=== PATIENT | male | born 1955 | race Hispanic/Latino ===

== ENCOUNTER 2021-08-10 17:25 | Inpatient (IN) | payer MEDICARE, OTHER ==
[~2021-08-10] VITALS: Ht 177.8 cm; Wt 118.9 kg
[2021-08-10 17:45] LABS: BASOPHILS % (AUTO) 0.5 % (0.0-5.0); EOSINOPHILS % (AUTO) 1.2 % (0.0-8.0); HEMATOCRIT 39.8 % (42-54); LYMPHOCYTES % (AUTO) 6.1 % (21.0-51.0); MEAN CORPUSCULAR HEMOGLOBIN 27.5 pg (27.0-33.0); MEAN CORPUSCULAR HGB CONC 34.2 g/dL (32.0-36.0); MEAN CORPUSCULAR VOLUME 80.4 fL (79-99); MONOCYTES % (AUTO) 8.3 % (3.0-13.0); NEUTROPHILS % (AUTO) 82.8 % (40.0-77.0); PLATELET COUNT (AUTO) 332 K/uL (130-400); RED BLOOD CELL COUNT(AUTO) 4.95 MIL/uL (4.50-6.20); WHITE BLOOD COUNT (AUTO) 12.1 K/uL (4.8-10.8)
[2021-08-10 18:01] LABS: CREATININE 1.3 mg/dL (0.5-1.5); POTASSIUM 3.1 mmol/L (3.5-5.1)
[2021-08-10 18:15] LABS: ALBUMIN 4.2 g/dL (3.5-5.0); BILIRUBIN,TOTAL 0.6 mg/dL (0.2-1.0); TOTAL PROTEIN, SERUM 7.5 g/dL (6.0-8.3)
[2021-08-10] MEDS ORDERED: 0.9%NACL 1000ML 1,000 ML IV ONE (18:18)
[2021-08-10] MEDS ORDERED: LEVOFLOXACIN 500 MG/D5W 100 ML 100 ML IV SCH (18:30)
[2021-08-10] MEDS ORDERED: LACTATED RINGERS 1000ML 2,190 ML IV ONE (18:30)
[2021-08-10 19:25] LABS: INR 1.12 (0.85-1.15); PROTHROMBIN TIME 12.1 SEC (9.6-11.6)
[2021-08-10 19:27] LABS: PARTIAL THROMBOPLASTIN TIME 24.8 SEC (26.3-35.5)
[2021-08-10 20:07] LABS: APPEARANCE,URINE Clear (CLEAR); BILIRUBIN,URINE Negative (NEGATIVE); COLOR,URINE Yellow (YELLOW); GLUCOSE, URINE (UA) Negative (NEGATIVE); KETONES,URINE Negative (NEGATIVE); LEUKOCYTE ESTERASE ,URINE Negative (NEGATIVE); NITRATE,URINE Negative (NEGATIVE); OCCULT BLOOD,URINE Negative (NEGATIVE); PH,URINE 5.5 (5.0-8.0); PROTEIN,URINE Negative (NEGATIVE)
[2021-08-10] MEDS ORDERED: POTASSIUM CHLORIDE 20MEQ/100ML 100 ML IV PRN (20:30)
[2021-08-10] MEDS ORDERED: LIDOCAINE HCL-MPF 1% 2ML VIAL IV PRN (20:30)
[2021-08-10] MEDS ORDERED: ONDANSETRON 4MG INJ IV PRN (21:00)
[2021-08-10] MEDS ORDERED: NITROGLYCERIN 0.4 MG SL TAB SL PRN (21:00)
[2021-08-10] MEDS: 0.9%NACL 1000ML 1,000 ML IV SCH (21:03)
[2021-08-10] MEDS: FAMOTIDINE 20MG VIAL IV SCH (21:03)
[2021-08-10 21:12] LABS: HEMOGLOBIN A1C 6.2 % (4.0-6.0)
[2021-08-10 21:43] LABS: CRP QUANTITATIVE < 2.00 mg/L (0.00-9.0)
[2021-08-10] MEDS ORDERED: ALBUTEROL INHALER 90MCG/INH IH PRN (22:00)
[2021-08-10] MEDS ORDERED: CEFTRIAXONE 1G VIAL IVP SCH (22:00)
[2021-08-10] MEDS: AZITHROMYCIN 500MG+NS 250ML IV SCH (22:18)
[2021-08-10] MEDS: 0.9% NACL 250ML IVPB SCH (22:18)
[2021-08-10] MEDS ORDERED: MAGNESIUM 2GM PREMIX 50ML 50 ML IV SCH (22:30)
[2021-08-10] MEDS ORDERED: DEXTROSE 50%-WATER 50 ML DISP.SYRIN IV PRN (22:30)
[2021-08-10] MEDS ORDERED: GLUCAGON 1MG KIT 1 MG ML IM PRN (22:30)
[2021-08-10 23:30] VITALS: BP 134/81
[2021-08-11 03:46] LABS: BASOPHILS % (AUTO) 0.2 % (0.0-5.0); EOSINOPHILS % (AUTO) 0.1 % (0.0-8.0); HEMATOCRIT 40.6 % (42-54); LYMPHOCYTES % (AUTO) 2.8 % (21.0-51.0); MEAN CORPUSCULAR HEMOGLOBIN 27.2 pg (27.0-33.0); MEAN CORPUSCULAR HGB CONC 33.3 g/dL (32.0-36.0); MEAN CORPUSCULAR VOLUME 81.7 fL (79-99); NEUTROPHILS % (AUTO) 90.4 % (40.0-77.0); PLATELET COUNT (AUTO) 327 K/uL (130-400); RED BLOOD CELL COUNT(AUTO) 4.97 MIL/uL (4.50-6.20); RED CELL DISTRIBUTION WIDTH 15.4 % (11.0-15.5); WHITE BLOOD COUNT (AUTO) 18.3 K/uL (4.8-10.8)
[2021-08-11 04:00] VITALS: BP 129/80
[2021-08-11 04:25] LABS: ALBUMIN 3.8 g/dL (3.5-5.0); BILIRUBIN,TOTAL 0.9 mg/dL (0.2-1.0); CREATININE 1.1 mg/dL (0.5-1.5); MAGNESIUM 1.8 mg/dL (1.80-2.40); POTASSIUM 3.9 mmol/L (3.5-5.1); THYROID STIMULATING HORMONE 3.32 uIU/mL (0.36-3.74); TOTAL PROTEIN, SERUM 7.2 g/dL (6.0-8.3)
[2021-08-11] MEDS: INSULIN HUMULIN R 100 UNIT/ML 3ML SQ SCH ×5 (06:00→21:00)
[2021-08-11] MEDS: 0.9%NACL 1000ML 1,000 ML IV SCH ×2 (07:00→17:51)
[2021-08-11 08:00] VITALS: BP 125/77
[2021-08-11] MEDS: ASPIRIN 81 MG EC TAB PO SCH (08:20)
[2021-08-11] MEDS: FAMOTIDINE 20MG VIAL IV SCH ×2 (08:21→21:00)
[2021-08-11] MEDS: ENOXAPARIN SODIUM 40 MG/0.4 ML SYRINGE SQ SCH (08:21)
[2021-08-11] MEDS ORDERED: ZOSYN 3.375GM +NS 50ML IV SCH (09:30)
[2021-08-11] MEDS ORDERED: ZOSYN 3.375GM+NS 50ML 50 ML IV SCH (10:00)
[2021-08-11] MEDS ORDERED: ALLO300T2 PO (10:39)
[2021-08-11] MEDS ORDERED: HYDR-4068 PO (10:39)
[2021-08-11] MEDS ORDERED: AEC81 PO (10:39)
[2021-08-11] MEDS ORDERED: BENZ-70 PO (10:39)
[2021-08-11] MEDS ORDERED: OLAN10TA73 PO (10:39)
[2021-08-11] MEDS ORDERED: LORA-192 PO (10:39)
[2021-08-11] MEDS ORDERED: METF-444 PO (10:39)
[2021-08-11] MEDS ORDERED: LEVO50 PO (10:39)
[2021-08-11] MEDS ORDERED: VIT PO (10:39)
[2021-08-11] MEDS ORDERED: FLUT16H NASAL (10:39)
[2021-08-11] MEDS ORDERED: LISI1TAB51 PO (10:39)
[2021-08-11] MEDS ORDERED: BACL20TA PO (10:39)
[2021-08-11] MEDS ORDERED: FLUO40CA7 PO (10:39)
[2021-08-11] MEDS ORDERED: OMEG-148 PO (10:39)
[2021-08-11] MEDS ORDERED: PROP10DR5 OU (10:39)
[2021-08-11] MEDS ORDERED: ATOR40TA71 PO (10:39)
[2021-08-11] MEDS ORDERED: PANT40TA54 PO (10:39)
[2021-08-11] MEDS ORDERED: TAMS-1 PO (10:39)
[2021-08-11 11:03] LABS: AMPHET/METH SCREEN,URINE NEGATIVE (NEGATIVE); BARBITURATE SCREEN, URINE NEGATIVE (NEGATIVE); BENZODIAZEPINES SCREEN,URINE NEGATIVE (NEGATIVE); CANNABINOID SCREEN,URINE NEGATIVE (NEGATIVE); COCAINE SCREEN,URINE NEGATIVE (NEGATIVE); OPIATE SCREEN,URINE NEGATIVE (NEGATIVE); PHENCYCLIDINE SCREEN,URINE NEGATIVE (NEGATIVE)
[2021-08-11 11:42] VITALS: BP 143/85
[2021-08-11] MEDS: ZOSYN 3.375GM+NS 50ML 50 ML IV SCH ×2 (13:00→21:10)
[2021-08-11 16:00] VITALS: BP 143/87
[2021-08-11 20:00] VITALS: BP 138/85
[2021-08-11] MEDS: HYDROCHLOROTHIAZIDE 25 MG TABLET PO SCH (21:08)
[2021-08-11] MEDS: OLANZAPINE 5 MG TAB PO SCH (21:08)
[2021-08-11] MEDS: ATORVASTATIN 40 MG TABLET PO SCH (21:09)
[2021-08-11] MEDS: LORAZEPAM 1 MG TABLET PO SCH (21:09)
[2021-08-11] MEDS: LISINOPRIL 20 MG TABLET PO SCH (21:21)
[2021-08-11] MEDS: 0.9% NACL 250ML IVPB SCH (22:00)
[2021-08-12] VITALS: BP 127/78
[2021-08-12] MEDS: AZITHROMYCIN 500MG+NS 250ML IV SCH ×2 (01:28→22:22)
[2021-08-12 04:00] VITALS: BP 157/85
[2021-08-12 04:41] LABS: BASOPHILS % (AUTO) 0.5 % (0.0-5.0); EOSINOPHILS % (AUTO) 2.6 % (0.0-8.0); HEMATOCRIT 37.9 % (42-54); LYMPHOCYTES % (AUTO) 8.6 % (21.0-51.0); MEAN CORPUSCULAR HEMOGLOBIN 26.7 pg (27.0-33.0); MEAN CORPUSCULAR VOLUME 80.8 fL (79-99); MONOCYTES % (AUTO) 7.7 % (3.0-13.0); NEUTROPHILS % (AUTO) 80.2 % (40.0-77.0); PLATELET COUNT (AUTO) 296 K/uL (130-400); RED BLOOD CELL COUNT(AUTO) 4.69 MIL/uL (4.50-6.20); RED CELL DISTRIBUTION WIDTH 15.7 % (11.0-15.5); WHITE BLOOD COUNT (AUTO) 9.2 K/uL (4.8-10.8)
[2021-08-12 05:02] LABS: ALBUMIN 3.5 g/dL (3.5-5.0); CREATININE 1.1 mg/dL (0.5-1.5); POTASSIUM 3.8 mmol/L (3.5-5.1)
[2021-08-12] MEDS: LEVOTHYROXINE 100 MCG TABLET PO SCH (06:30)
[2021-08-12] MEDS: LEVOTHYROXINE 75 MCG TABLET PO SCH (06:30)
[2021-08-12] MEDS ORDERED: NITROGLYCERIN 0.4 MG SL TAB SL PRN (07:30)
[2021-08-12] MEDS ORDERED: METOPROLOL TARTRATE 25 MG TAB PO SCH (07:30)
[2021-08-12] MEDS: INSULIN HUMULIN R 100 UNIT/ML 3ML SQ SCH ×4 (07:30→21:00)
[2021-08-12 08:00] VITALS: BP 157/82
[2021-08-12] MEDS ORDERED: LISINOPRIL 20 MG TABLET PO SCH (09:00)
[2021-08-12] MEDS ORDERED: HYDROCHLOROTHIAZIDE 25 MG TABLET PO SCH (09:00)
[2021-08-12] MEDS: FAMOTIDINE 20MG VIAL IV SCH (09:00)
[2021-08-12] MEDS: HYDROCHLOROTHIAZIDE 25 MG TABLET PO SCH (10:10)
[2021-08-12] MEDS: TAMSULOSIN HCL 0.4 MG CAP.ER.24H PO SCH (10:10)
[2021-08-12] MEDS: LORAZEPAM 1 MG TABLET PO SCH ×3 (10:11→22:21)
[2021-08-12] MEDS: ALLOPURINOL 300 MG TABLET PO SCH (10:11)
[2021-08-12] MEDS: FISH OIL 1000 MG/CAP PO SCH (10:11)
[2021-08-12] MEDS: PANTOPRAZOLE 40 MG TAB DR PO SCH (10:12)
[2021-08-12] MEDS: FLUOXETINE HCL 20 MG CAPSULE PO SCH (10:12)
[2021-08-12] MEDS: ASPIRIN 81 MG EC TAB PO SCH (10:12)
[2021-08-12] MEDS: ENOXAPARIN SODIUM 40 MG/0.4 ML SYRINGE SQ SCH (10:14)
[2021-08-12] MEDS: LISINOPRIL 20 MG TABLET PO SCH (10:28)
[2021-08-12] MEDS ORDERED: IOHEXOL-350 50ML VIAL IV ONE (11:16)
[2021-08-12 11:51] VITALS: BP 138/86
[2021-08-12] MEDS: 0.9%NACL 1000ML 1,000 ML IV SCH ×3 (11:51→22:57)
[2021-08-12] MEDS: ZOSYN 3.375GM+NS 50ML 50 ML IV SCH ×2 (13:08→22:21)
[2021-08-12 16:00] VITALS: BP 155/94
[2021-08-12 20:00] VITALS: BP 154/91
[2021-08-12] MEDS: ATORVASTATIN 40 MG TABLET PO SCH (22:21)
[2021-08-12] MEDS: OLANZAPINE 5 MG TAB PO SCH (22:21)
[2021-08-12] MEDS: 0.9% NACL 250ML IVPB SCH (22:22)
[2021-08-13] VITALS: BP 144/92
[2021-08-13 04:00] VITALS: BP 152/94
[2021-08-13] MEDS: ZOSYN 3.375GM+NS 50ML 50 ML IV SCH (05:42)
[2021-08-13] MEDS: LEVOTHYROXINE 100 MCG TABLET PO SCH (05:42)
[2021-08-13] MEDS: LEVOTHYROXINE 75 MCG TABLET PO SCH (05:42)
[2021-08-13] MEDS: INSULIN HUMULIN R 100 UNIT/ML 3ML SQ SCH ×2 (05:47→11:30)
[2021-08-13 06:00] LABS: HEMATOCRIT 37.5 % (42-54); MEAN CORPUSCULAR HEMOGLOBIN 27.1 pg (27.0-33.0); MEAN CORPUSCULAR HGB CONC 33.3 g/dL (32.0-36.0); MEAN CORPUSCULAR VOLUME 81.3 fL (79-99); RED BLOOD CELL COUNT(AUTO) 4.61 MIL/uL (4.50-6.20); RED CELL DISTRIBUTION WIDTH 15.6 % (11.0-15.5); WHITE BLOOD COUNT (AUTO) 8.2 K/uL (4.8-10.8)
[2021-08-13 06:25] LABS: CREATININE 1.1 mg/dL (0.5-1.5)
[2021-08-13 08:00] VITALS: BP 144/92
[2021-08-13] MEDS ORDERED: AMOX-429 PO (08:58)
[2021-08-13] MEDS: 0.9%NACL 1000ML 1,000 ML IV SCH (09:00)
[2021-08-13] MEDS: FISH OIL 1000 MG/CAP PO SCH (09:29)
[2021-08-13] MEDS: LORAZEPAM 1 MG TABLET PO SCH (09:29)
[2021-08-13] MEDS: LISINOPRIL 20 MG TABLET PO SCH (09:30)
[2021-08-13] MEDS: HYDROCHLOROTHIAZIDE 25 MG TABLET PO SCH (09:30)
[2021-08-13] MEDS: ALLOPURINOL 300 MG TABLET PO SCH (09:30)
[2021-08-13] MEDS: ASPIRIN 81 MG EC TAB PO SCH (09:30)
[2021-08-13] MEDS: PANTOPRAZOLE 40 MG TAB DR PO SCH (09:30)
[2021-08-13] MEDS: TAMSULOSIN HCL 0.4 MG CAP.ER.24H PO SCH (09:31)
[2021-08-13] MEDS: FLUOXETINE HCL 20 MG CAPSULE PO SCH (09:31)
[2021-08-13] MEDS: ENOXAPARIN SODIUM 40 MG/0.4 ML SYRINGE SQ SCH (09:35)
[2021-08-13 12:00] VITALS: BP 141/88
== END 2021-08-13 13:45 | disposition home or self-care (01) | DRG 178 ==
LOC: EDH 17:25 → EDHIP 20:30 → 3CH 22:52
PROVIDERS: ADMIT Internal Medicine; ATTEND Internal Medicine
DX: J69.0 Pneumonitis due to inhalation of food and vomit (principal); J98.11 Atelectasis; M62.82 Rhabdomyolysis; E87.1 Hypo-osmolality and hyponatremia; K52.9 Noninfective gastroenteritis and colitis, unspecified; N40.0 Benign prostatic hyperplasia without lower urinary tract symptoms; E66.9 Obesity, unspecified; Z68.38 Body mass index [BMI] 38.0-38.9, adult; E87.6 Hypokalemia; E78.5 Hyperlipidemia, unspecified; E86.1 Hypovolemia; Z20.822 Contact with and (suspected) exposure to COVID-19; G89.29 Other chronic pain; E11.9 Type 2 diabetes mellitus without complications; I10 Essential (primary) hypertension; E03.9 Hypothyroidism, unspecified; E86.0 Dehydration; F32.A Depression, unspecified; F41.9 Anxiety disorder, unspecified; E83.42 Hypomagnesemia; F43.10 Post-traumatic stress disorder, unspecified; E87.8 Other disorders of electrolyte and fluid balance, not elsewhere classified; E78.00 Pure hypercholesterolemia, unspecified; I70.0 Atherosclerosis of aorta; K57.30 Diverticulosis of large intestine without perforation or abscess without bleeding; Z79.891 Long term (current) use of opiate analgesic; Z98.1 Arthrodesis status; Z84.1 Family history of disorders of kidney and ureter; Z82.49 Family history of ischemic heart disease and other diseases of the circulatory system
CPT/HCPCS: 36415; 70450; 70470; 71045; 74176; 80048; 80053; 80061; 80305; 81003; 82270; 82550; 82948; 83036; 83605; 83630; 83690; 83735; 83874; 84145; 84443; 84484; 85025; 85027; 85610; 85651; 85730; 86140; 87040; 87046; 87177; 87507; 87635; 93005; 93306; 93356; 93970; 95819; G0378; J0456; J0696; J1650; J1956; J2543; J3475; J3480; J3490; J7030; J7050; J7120; Q9967

== ENCOUNTER 2021-12-01 03:18 | Emergency (ER) | payer MEDICARE ==
[~2021-12-01] VITALS: Ht 177.8 cm; Wt 117.9 kg
[~2021-12-01 03:18] MED LIST: AEC81 PO; ALLO300T2 PO; AMOX-429 PO; ATOR40TA71 PO; BACL20TA PO; BENZ-70 PO; FLUO40CA7 PO; FLUT16H NASAL; HYDR-4068 PO; LEVO50 PO; LISI1TAB51 PO; LORA-192 PO; METF-444 PO; OLAN10TA73 PO; OMEG-148 PO; PANT40TA54 PO; PROP10DR5 OU; TAMS-1 PO; VIT PO
[2021-12-01 03:33] LABS: BASOPHILS % (AUTO) 0.9 % (0.0-5.0); EOSINOPHILS % (AUTO) 3.2 % (0.0-8.0); HEMATOCRIT 40.2 % (42-54); LYMPHOCYTES % (AUTO) 14.6 % (21.0-51.0); MEAN CORPUSCULAR HEMOGLOBIN 27.8 pg (27.0-33.0); MEAN CORPUSCULAR HGB CONC 32.8 g/dL (32.0-36.0); MEAN CORPUSCULAR VOLUME 84.6 fL (79-99); MONOCYTES % (AUTO) 8.7 % (3.0-13.0); PLATELET COUNT (AUTO) 372 K/uL (130-400); RED BLOOD CELL COUNT(AUTO) 4.75 MIL/uL (4.50-6.20); RED CELL DISTRIBUTION WIDTH 13.7 % (11.0-15.5); WHITE BLOOD COUNT (AUTO) 11.7 K/uL (4.8-10.8)
[2021-12-01 03:40] LABS: CREATININE 1.2 mg/dL (0.5-1.5); POTASSIUM 4.1 mmol/L (3.5-5.1)
[2021-12-01 03:45] LABS: ALBUMIN 3.9 g/dL (3.5-5.0); BILIRUBIN,TOTAL 0.6 mg/dL (0.2-1.0); TOTAL PROTEIN, SERUM 7.4 g/dL (6.0-8.3)
[2021-12-01] MEDS ORDERED: 0.9%NACL 1000ML 1,000 ML IV ONE (04:30)
[2021-12-01] MEDS ORDERED: ONDANSETRON 4MG INJ IVP ONE (04:30)
[2021-12-01] MEDS ORDERED: KETOROLAC 60 MG VIAL (30MG/ML) IM ONE (05:00)
[2021-12-01] MEDS ORDERED: ORPHENADRINE CITRATE 30 MG/ML ML IM ONE (05:00)
[2021-12-01] MEDS ORDERED: ONDA4TAB10 PO (05:40)
[2021-12-01 05:46] VITALS: BP 121/74
== END 2021-12-01 05:52 | disposition home or self-care (01) ==
LOC: EDH 03:18
DX: R55 Syncope and collapse (principal); E86.9 Volume depletion, unspecified; Z20.822 Contact with and (suspected) exposure to COVID-19; F41.9 Anxiety disorder, unspecified; F32.A Depression, unspecified; E11.9 Type 2 diabetes mellitus without complications; E78.00 Pure hypercholesterolemia, unspecified; I10 Essential (primary) hypertension; E03.9 Hypothyroidism, unspecified; Z79.899 Other long term (current) drug therapy; Z79.82 Long term (current) use of aspirin; Z79.84 Long term (current) use of oral hypoglycemic drugs; Z98.890 Other specified postprocedural states
CPT/HCPCS: 36415; 70450; 71045; 80053; 84484; 85025; 87635; 93005; 96361; 96374; 99285; C9803; J2405; J7030